=== PATIENT | female | born 1965 | race Caucasian/White ===

== ENCOUNTER 2018-09-05 18:15 | Emergency (ER) | payer BC ==
[2018-09-05] MEDS ORDERED: Lidocaine 1% w/Epinephrine 1:100K 20 ML VIAL ONE (18:34)
== END 2018-09-05 20:05 | disposition home or self-care (01) ==
LOC: ERS 18:15
DX: S80.812A Abrasion, left lower leg, initial encounter (principal); I83.892 Varicose veins of left lower extremity with other complications; F17.210 Nicotine dependence, cigarettes, uncomplicated; W26.8XXA Contact with other sharp object(s), not elsewhere classified, initial encounter
CPT/HCPCS: 99282; J2001